=== PATIENT | male | born 1945 | race Caucasian/White ===

== ENCOUNTER → 2016-11-08 | Outpatient (CLI) | payer OTHER ==
[~2016-11-08] MED LIST: AMLODIPINE BESY10 MG PO; ASPIRIN81 M1 PO; FOLIC ACID PO; METOPROLOL SUCC50 MG PO; ORUDIS75 M1 PO
--- NOTE | ~2016-11-08 | MR113 ---
[facility] A Service of [facility] RADIOLOGY TEXT RESULTS PATIENT: DONAVAN BURDEN LOCATION: [facility] : 45 UNIT #: [id number] AGE: [address]: Fredy Tirado MD SEX: M ORDER DR: [id number] [facility] [address] [place], [place] [address] [id number] O MR#: [id number] Acc #: [id number] NAME: DONAVAN BURDEN : 1945 SEX: M STUDY DATE/TIME: 11/08/2016 15:59 UNIT: [facility] ROOM: STUDY DESCRIPTION: MR Lumbar Wo Contrast Attending Physician: Fredy Tirado M.D. Referring Physician: Fredy Tirado M.D. Ordering Physician: Fredy Tirado M.D. Primary Care Physician: Cj Ron M.D. MRI CENTER REPORT This report is preliminary unless electronic signature is present. EXAM Lumbar MRI HISTORY Back pain radiating to the right since falling 10 days ago. TECHNIQUE Multiplanar imaging of the lumbar spine was performed with short and long TR. FINDINGS There is a burst compression fracture of T12 with approximate 50% loss of height. There is retropulsion of the posterior margin T12 back into the spinal canal contacting the conus but not deforming or compressing it. The appearance is similar to the plain film examination of 10/31/2016. The canal is narrowed by about 6 mm and the AP diameter spinal canal at the level of the retropulsed fracture fragment is 12 mm. Also noted is mild marrow edema in the anterior column involving the upper endplate of L2. This is also consistent with an acute to subacute fracture. There is no significant loss of height. All lumbar discs show degenerative changes with loss of disc space height and posterior disc bulging and this is accompanied by mild to moderate facet arthropathy. Central spinal stenosis is present at all lumbar levels and is most prominent at L3-4 and L4-5. At the L4-5 level the posterior disc and osteophyte is more prominent to the left than to the right. There is moderate left foraminal narrowing and mild foraminal narrowing on the right at L4-5. At the other lumbar levels. Foraminal narrowing is mild bilaterally. IMPRESSION 1. Acute to subacute compression fractures at T12 and L2 more severe at T12 where there is a burst fracture with 50% loss of height and 6 mm of retropulsion of the posterior margin of T12 back into the spinal canal contacting but not compressing the conus. The AP diameter of [facility] A Service of [facility] RADIOLOGY TEXT RESULTS PATIENT: DONAVAN BURDEN LOCATION: [facility] : 45 UNIT #: [id number] AGE: [address]: Fredy Tirado MD SEX: M ORDER DR: the canal at this level is 12 mm. The L2 fracture only involves the anterior column of the upper endplate with no significant loss of vertebral body height. 2. Multilevel lumbar spondylosis from degenerative disc and facet disease. Central stenosis is generally mild but is moderate at L3-4 and L4-5. At L4-5 there is asymmetric relative left-sided foraminal stenosis that is moderate. No discrete disc herniation is seen. Dictated by... Donavan Joe M.D. THIS IS AN ELECTRONICALLY VERIFIED REPORT Donavan Joe M.D. at 11/09/2016 4:39 PM Isaura TD: 11/09/2016 09:17 JOB #: [id number] MRI CENTER REPORT Page 1 of 1 COPY
== END | disposition home or self-care (01) ==
LOC: CMRI 15:03
DX: M45.6 Ankylosing spondylitis lumbar region (principal); M48.06 Spinal stenosis, lumbar region; M51.36 Other intervertebral disc degeneration, lumbar region; M48.56XA Collapsed vertebra, not elsewhere classified, lumbar region, initial encounter for fracture; M47.896 Other spondylosis, lumbar region
CPT/HCPCS: 72148